=== PATIENT | male | born 1980 | race Caucasian/White ===

== ENCOUNTER 2016-11-09 10:53 | Emergency (ER) | payer SELFPAY ==
[2016-11-09 11:03] VITALS: RESP 18; TEMP 99.5
--- NOTE | 2016-11-09 11:07 | EDPHY ---
H & P Stated Complaint: medical clear for longterm, hx NE Time Seen by Provider: 11/09/16 11:00 HPI/ROS: CHIEF COMPLAINT: Sent to the ED for medical clearance HISTORY OF PRESENT ILLNESS: The patient presents to the emergency department for medical clearance. The patient reportedly was being booked into longterm and was noted to have a Holter monitor on his chest. The patient reports that he has a history of small heart attacks but denies history of having had an angiogram. The patient denies any active chest pain or shortness of breath. The patient states he typically receives his care at the [facility]. The patient reportedly went to an urgent care facility who placed the Holter monitor on the patient. The patient denies any additional complaints of fever, cough or congestion. REVIEW OF SYSTEMS: A comprehensive 10 point review of systems is otherwise negative aside from elements mentioned in the history of present illness. Source: Patient Exam Limitations: No limitations - Personal History Current Tetanus Diphtheria and Acellular Pertussis (TDAP): Yes Tetanus Vaccine Date: 2015 - Medical/Surgical History Hx Asthma: No Hx Chronic Respiratory Disease: No Hx Diabetes: No Hx Cardiac Disease: No Hx Renal Disease: No Hx Cirrhosis: No Hx Alcoholism: No Hx HIV/AIDS: No Hx Splenectomy or Spleen Trauma: No Other PMH: NE - Social History Smoking Status: Former smoker - Physical Exam Exam: General Appearance: Alert, no distress Eyes: Pupils equal and round no pallor or injection ENT, Mouth: Mucous membranes moist Respiratory: There are no retractions, lungs are clear to auscultation Cardiovascular: Regular rate and rhythm Gastrointestinal: Abdomen is soft and nontender, no masses, bowel sounds normal Neurological: A&O, normal motor function, normal sensory exam, normal cranial nerves Skin: Warm and dry, no rashes Musculoskeletal: Neck is supple nontender Extremities: symmetrical, full range of motion Constitutional: Initial Vital Signs Temperature (C) 37.5 C 11/09/16 11:02 Heart Rate 126 H 11/09/16 11:02 Respiratory Rate 18 11/09/16 11:02 Blood Pressure 166/120 H 11/09/16 11:02 O2 Sat (%) 96 11/09/16 11:02 O2 Delivery Mode Room Air Allergies/Adverse Reactions: codeine Allergy (Verified 11/09/16 11:00) Sulfa (Sulfonamide Antibiotics) Allergy (Verified 11/09/16 11:00) Medical Decision Making - Diagnostics EKG Interpretation: EKG: Complete interpretation has been separately recorded in the [email or web address] archive. Summary impression: Sinus tachycardia, rate 132 Imaging: Chest x-ray AP: Images reviewed by myself, negative for cardiomegaly, pneumothorax, pneumonia or other abnormality which would explain chest pain. ED Course/Re-evaluation: I reviewed our records at the hospital and see no prior history of documented coronary artery disease or hospitalization for chest pain. I contacted [facility] and reviewed his past medical history. The report the patient had no history of CAD per their records. They report a normal Holter monitor test for palpitations. His medications included Klonopin and trazadone. He does have a history of anxiety. At this point time the patient does have evidence of a sinus tachycardia which I feel is secondary to his history of anxiety as well as the fact that he is being arrested. The patient has no risk factors for pulmonary embolism. The patient denies pleuritic chest pain. He has no clinical evidence of a DVT. The patient has no risk factors for cardiac disease. The patient's D-dimer is normal which I feel adequately excludes pulmonary embolism. Additionally the patient's troponin is normal. His chest x-ray demonstrates no acute disease. Upon reviewing his records with the [facility] electronic health record system as well as [facility] there is no history of coronary artery disease. At this point time I do feel that he can be discharged to the longterm. Differential Diagnosis: Differential diagnosis considered includes acute coronary syndrome, pericarditis , myocarditis - Data Points Laboratory Results: Laboratory Results 11/09/16 11:06 11/09/16 11:06 11/09/16 11:06 WBC 11.37 H 10^3/uL (3.80-9.50) RBC 5.80 10^6/uL (4.40-6.38) Hgb 17.2 g/dL (13.7-17.5) Hct 49.1 % (40.0-51.0) MCV 84.7 fL (81.5-99.8) MCH 29.7 pg (27.9-34.1) MCHC 35.0 g/dL (32.4-36.7) RDW 13.1 % (11.5-15.2) Plt Count 338 10^3/uL (150-400) MPV 9.0 fL (8.7-11.7) Neut % (Auto) 77.5 H % (39.3-74.2) Lymph % (Auto) 12.1 L % (15.0-45.0) [place] % (Auto) 8.9 % (4.5-13.0) Eos % (Auto) 0.6 % (0.6-7.6) Baso % (Auto) 0.4 % (0.3-1.7) Nucleat RBC Rel Count 0.0 % (0.0-0.2) Absolute Neuts (auto) 8.80 H 10^3/uL (1.70-6.50) Absolute Lymphs (auto) 1.38 10^3/uL (1.00-3.00) Absolute Monos (auto) 1.01 H 10^3/uL (0.30-0.80) Absolute Eos (auto) 0.07 10^3/uL (0.03-0.40) Absolute Basos (auto) 0.05 10^3/uL (0.02-0.10) Absolute Nucleated RBC 0.00 10^3/uL (0-0.01) Immature Gran % 0.5 % (0.0-1.1) Immature Gran # 0.06 10^3/uL (0.00-0.10) D-Dimer < 0.27 ug/mLFEU (0.00-0.50) Sodium 144 mEq/L (134-144) Potassium 3.6 mEq/L (3.5-5.2) Chloride 100 mEq/L (97-110) Carbon Dioxide 24 mEq/l (22-31) Anion Gap 20 mEq/L (8-16) BUN 16 mg/dL (7-23) Creatinine 1.0 mg/dL (0.7-1.3) Estimated GFR > 60 Glucose 114 H mg/dL (70-100) Calcium 9.7 mg/dL (8.5-10.4) Troponin I < 0.012 ng/mL (0-0.034) Departure - Departure Disposition: Home, Routine, Self-Care Clinical Impression: Tachycardia, Anxiety Condition: Good Instructions: Tachycardia (ED) Additional Instructions: 1. There is no evidence of a heart attack, heart disease or significant heart issue based upon our evaluation in the ED today. 2. Please follow up with your primary care provider as scheduled
--- NOTE | 2016-11-09 11:12 | CPEKG ---
Heart Rate: 132 RR Interval: 455 P-R Interval: 160 QRSD Interval: 86 QT Interval: 292 QTC Interval: 433 P [place]: 76 QRS [place]: 79 T Wave [place]: 15 EKG Severity - OTHERWISE NORMAL ECG - EKG Impression: SINUS TACHYCARDIA EKG Impression: MINIMAL ST DEPRESSION, INFERIOR LEADS Electronically Signed By: Sagar Fernandez 09-Nov-2016 16:22:45
[2016-11-09 11:35] LABS: % IMMATURE GRANULYOCYTES 0.5 % (0.0-1.1); ABSOLUTE IMMATURE GRANULOCYTES 0.06 10^3/uL (0.00-0.10); ADD DIFF? NO; ADD MORPH? NO; ADD SCAN? NO; ATYPICAL LYMPHOCYTE FLAG 0 (0-99); FRAGMENT RBC FLAG 0 (0-99); HEMATOCRIT 49.1 % (40.0-51.0); HEMOGLOBIN 17.2 g/dL (13.7-17.5); LEFT SHIFT FLG 0 (0-99); LIPEMIA HEMOLYSIS FLAG 90 (0-99); MEAN CELL HEMOGLOBIN 29.7 pg (27.9-34.1); MEAN CELL VOLUME 84.7 fL (81.5-99.8); PLATELET CLUMPS FLAG 0 (0-99); PLATELET COUNT 338 10^3/uL (150-400); RED CELL DISTRIBUTION WIDTH 13.1 % (11.5-15.2)
[2016-11-09 11:45] LABS: ANION GAP 20 mEq/L (8-16); CALCIUM 9.7 mg/dL (8.5-10.4); CARBON DIOXIDE 24 mEq/l (22-31); CHLORIDE 100 mEq/L (97-110); GLOMERULAR FILTRATION RATE > 60; GLUCOSE 114 mg/dL (70-100); POTASSIUM 3.6 mEq/L (3.5-5.2); SODIUM 144 mEq/L (134-144)
[2016-11-09 11:57] LABS: TROPONIN I < 0.012 ng/mL (0-0.034)
[2016-11-09 12:01] VITALS: BP 145/100; PULSE 123; O2SAT 100
--- NOTE | 2016-11-09 12:20 | DX ---
Portable AP Upright Chest, Single View, at 11:41 a.m. Clinical Indications: 35-year-old male in the ED with chest pain. Comparison Study: None. Findings: Telemetry monitoring lead lines are present. A frontal view (only) shows clear lungs, and no masses. The cardiac silhouette size and pulmonary vessels appear normal. There is no evidence of a pleural effusion, peripheral interstitial edema, or pneumothorax. The osseous structures are age-a ppropriate. The trachea is midline. Impression: Negative frontal chest radiograph.
== END 2016-11-09 12:19 | disposition home or self-care (01) ==
DX: R00.0 Tachycardia, unspecified (principal); F41.9 Anxiety disorder, unspecified; I25.2 Old myocardial infarction; Z87.891 Personal history of nicotine dependence

== ENCOUNTER 2017-01-29 20:32 | Emergency (ER) | payer SELFPAY ==
[2017-01-29 20:46] VITALS: RESP 16; TEMP 98.2
--- NOTE | 2017-01-29 20:48 | UCPHY ---
H & P Patient Type: Established Chief Complaint Nursing Narrative: R rib pain after hitting R side on dumpster on 01/25. HPI/ROS: HPI CHIEF COMPLAINT: Right rib pain HISTORY OF PRESENT ILLNESS: This patient very pleasant 28-year-old male denies having any significant medical history, presents to the urgent care with right rib pain. Patient states 3 days ago he was throwing something on into a dumpster he was using all this force to get this object in the dumpster any fell onto his right ribs against a dumpster edge, did not fall on it just leaned up against it with impacted his right lateral ribs. He now has right lateral rib pain 1 focal area. Hurts to take a deep breath in however he is not short of breath. No coughing. No hemoptysis. Pain with going to sit up in pain with deep inspiration. This been present for 72 hours. Past Medical History:No significant medical history Past Surgical History: Denies any recent surgical history Social History: denies daily use drugs alcohol tobacco products Family History: Noncontributory ROS REVIEW OF SYSTEMS: A comprehensive 10 point review of systems is otherwise negative aside from elements mentioned in the history of present illness. Exam Constitutional triage nursing summary reviewed, vital signs reviewed, awake/ alert. Eyes normal conjunctivae and sclera, EOMI, PERRLA. HENT normal inspection, atraumatic, moist mucus membranes, no epistaxis, neck supple/ no meningismus, no raccoon eyes. Respiratory clear to auscultation bilaterally, normal breath sounds, no respiratory distress, no wheezing. Cardiovascular chest wall; tender palpation right lateral ribs 8 9th area, focally tender, good breath sounds bilaterally, no flail chest, no ecchymosis rate normal, regular rhythm, no murmur, no edema, distal pulses normal. Gastrointestinal soft, non-tender, no rebound, no guarding, normal bowel sounds, no distension, no pulsatile mass. Genitourinary no CVA tenderness. Musculoskeletal no midline vertebral tenderness, full range of motion, no calf swelling, no tenderness of extremities, no meningismus, good pulses, neurovascularly intact. Skin pink, warm, & dry, no rash, skin atraumatic. Neurologic awake, alert and oriented x 3, AAOx3, moves all 4 extremities equally, motor intact, sensory intact, CN II-XII intact, normal cerebellar, normal vision, normal speech. Psychiatric normal mood/affect. Heme/Lymph/Immune no lymphadenopathy. Differential Diagnosis: Includes but is not limited to in a particular, rib fractures, rib contusion, rib sprain, musculoskeletal injury, pneumothorax, hemothorax Medical Decision Making: Plan for this patient ibuprofen dose here 800 mg, two view chest x-ray and rib series right-sided to evaluate for rib fractures pneumothorax. Most likely this patient is rib contusion. Re-evaluation: ED x-ray right rib chest two view:No acute fracture seen on x-ray, no pneumothorax. 2134: x-ray reviewed by myself, do not appreciate a pneumothorax or significant rib fractures. Will place on ibuprofen ice pack. Take it easy. Understands if develops worsening chest pain, shortness of breath or questions or concerns return to the urgent care emergency room. Source: Patient - Personal History Current Tetanus Diphtheria and Acellular Pertussis (TDAP): Yes Tetanus Vaccine Date: 2015 - Medical/Surgical History Hx Asthma: No Hx Chronic Respiratory Disease: No Hx Diabetes: No Hx Cardiac Disease: No Hx Renal Disease: No Hx Cirrhosis: No Hx Alcoholism: No Hx HIV/AIDS: No Hx Splenectomy or Spleen Trauma: No Other PMH: Possible [place] 2015 - Family History Significant Family History: No pertinent family hx - Social History Smoking Status: Former smoker Constitutional: Initial Vital Signs Temperature (C) 36.8 C 01/29/17 20:43 Heart Rate 108 H 01/29/17 20:43 Respiratory Rate 16 01/29/17 20:43 Blood Pressure 148/96 H 01/29/17 20:43 O2 Sat (%) 93 01/29/17 20:43 O2 Delivery Mode Room Air Allergies/Adverse Reactions: codeine Allergy (Unknown, Verified 01/29/17 20:46) Unknown Sulfa (Sulfonamide Antibiotics) Allergy (Unknown, Verified 01/29/17 20:47) Unknown Home Medications: Medication Instructions Recorded Ibuprofen [Motrin (*)] 800 mg PO Q6-8PRN #10 tab 01/29/17 Medical Decision Making - Data Points Medications Given: Discontinued Medications Ibuprofen (Motrin) 800 mg PO EDNOW ONE Stop: 01/29/17 20:57 Last Admin: 01/29/17 21:01 Dose: 800 mg Departure - Departure Disposition: Home, Routine, Self-Care Clinical Impression: Contusion of rib on right side Qualifiers: Encounter type: initial encounter Qualified Code(s): S20.211A - Contusion of right front wall of thorax, initial encounter Condition: Good Instructions: Rib Contusion (ED) Additional Instructions: 1. Ice her ribs. 2. take anti-inflammatory pain medicine as prescribed for acute pain control. 3. Take it easy. 4.To return to the emergency room urgent care if he develops severe pain, shortness of breath. Referrals: NONE *PRIMARY CARE P,. [Primary Care Provider] - As per Instructions Prescriptions: Ibuprofen [Motrin (*)] 800 mg PO Q6-8PRN #10 tab - PQRS PQRS Measurement: n/a
[2017-01-29] MEDS ORDERED: IBUPROFEN 800 MG TAB PO ONE (20:56)
[2017-01-29] MEDS ORDERED: IBUPROFEN 200 MG TAB PO ONE (20:58)
[2017-01-29 21:44] VITALS: BP 144/89; PULSE 104; O2SAT 96
== END 2017-01-29 21:45 | disposition home or self-care (01) ==
LOC: CED 20:32
DX: S20.211A Contusion of right front wall of thorax, initial encounter (principal); W22.8XXA Striking against or struck by other objects, initial encounter; W19.XXXA Unspecified fall, initial encounter; Z87.891 Personal history of nicotine dependence
CPT/HCPCS: 71101-PO; 99214-PO; G0463-PO

== ENCOUNTER 2017-02-16 09:12 | Emergency (ER) | payer SELFPAY ==
[2017-02-16] MEDS ORDERED: ASPIRIN 81 MG CHEWABLE TAB PO ONE (09:20)
--- NOTE | 2017-02-16 09:29 | CPEKG ---
Heart Rate: 107 RR Interval: 561 P-R Interval: 136 QRSD Interval: 86 QT Interval: 324 QTC Interval: 433 P [place]: 72 QRS [place]: 54 T Wave [place]: -6 EKG Severity - OTHERWISE NORMAL ECG - EKG Impression: SINUS TACHYCARDIA Electronically Signed By: Jude Alberto 16-Feb-2017 15:54:24
[2017-02-16] MEDS ORDERED: NS 1,000 ML IV ONE (09:31)
[2017-02-16 09:44] LABS: % IMMATURE GRANULYOCYTES 0.7 % (0.0-1.1); ABSOLUTE IMMATURE GRANULOCYTES 0.05 10^3/uL (0.00-0.10); ADD DIFF? NO; ADD MORPH? NO; ADD SCAN? NO; ATYPICAL LYMPHOCYTE FLAG 10 (0-99); FRAGMENT RBC FLAG 0 (0-99); HEMATOCRIT 45.8 % (40.0-51.0); HEMOGLOBIN 15.9 g/dL (13.7-17.5); LEFT SHIFT FLG 0 (0-99); LIPEMIA HEMOLYSIS FLAG 90 (0-99); MEAN CELL HEMOGLOBIN 29.6 pg (27.9-34.1); MEAN CELL HEMOGLOBIN CONCENTR. 34.7 g/dL (32.4-36.7); MEAN CELL VOLUME 85.3 fL (81.5-99.8); MEAN PLATELET VOLUME 8.7 fL (8.7-11.7); PLATELET CLUMPS FLAG 0 (0-99); PLATELET COUNT 306 10^3/uL (150-400); RED BLOOD CELL COUNT 5.37 10^6/uL (4.40-6.38)
[2017-02-16 09:57] LABS: ANION GAP 16 mEq/L (8-16); CARBON DIOXIDE 25 mEq/l (22-31); CHLORIDE 99 mEq/L (97-110); GLOMERULAR FILTRATION RATE > 60; GLUCOSE 93 mg/dL (70-100); POTASSIUM 3.7 mEq/L (3.5-5.2); SODIUM 140 mEq/L (134-144)
[2017-02-16 10:10] LABS: TROPONIN I < 0.012 ng/mL (0-0.034)
[2017-02-16 10:35] VITALS: TEMP 97.9
--- NOTE | 2017-02-16 11:10 | UCPHY ---
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 [place] that with through to his back to the left scapular region. Currently the pain is 4/10 without intervention. He has had similar pains in the past with negative workups but feels the intensity of this morning's episode was more severe than usual. He reported mild dyspnea associated with this and felt that the discomfort worsened slightly with a deep breath. He has associated anxiety and reports increased work stress recently. He notes no other exacerbating factors. ROS: No fevers chills or other constitutional symptoms recently except for the increased work stress. HEENT: No URI symptoms or other complaints recently. Pulmonary: No coughing. No hemoptysis. No respiratory distress. Cardiovascular: No heart palpitations. No lightheadedness. No lower extremity swelling or calf pain. GI: No belly pain nausea or vomiting. Endocrine: No diaphoresis: Integumentary: No skin rash. 10 point ROS is otherwise negative. Source: Patient Exam Limitations: No limitations - Personal History Current Tetanus Diphtheria and Acellular Pertussis (TDAP): Yes Tetanus Vaccine Date: 2015 - Medical/Surgical History PMH: Prior chest pains and anxiety with negative workups. 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 Eyes: Pupils equal and round no pallor or injection. ENT, Mouth: Mucous membranes moist. Respiratory: There are no retractions, lungs are clear to auscultation. No chest wall tenderness. Cardiovascular: Regular rate and rhythm. No murmur gallop rub. No JVD. No peripheral edema. No calf swelling or tenderness. Gastrointestinal: Abdomen is soft and nontender, no masses, bowel sounds normal. Neurological: GCS of 15 with no focal sensory motor deficits. Skin: Warm and dry, no rashes. Musculoskeletal: Neck is supple nontender. Extremities are symmetrical, full range of motion. Psychiatric: Mood and affect are normal DIFFERENTIAL DIAGNOSIS: After history and physical exam differential diagnosis was considered for musculoskeletal pain, pleurisy, PE, coronary syndrome, pneumothorax, pneumonia Constitutional: Initial Vital Signs Temperature (C) 36.3 C 02/16/17 09:12 Heart Rate 103 H 02/16/17 09:12 Respiratory Rate 18 02/16/17 09:12 Blood Pressure 143/88 H 02/16/17 09:12 O2 Sat (%) 99 02/16/17 09:12 O2 Delivery Mode Room Air Allergies/Adverse Reactions: codeine Allergy (Unknown, Verified 02/16/17 09:20) Unknown Sulfa (Sulfonamide Antibiotics) Allergy (Unknown, Verified 02/16/17 09:20) Unknown Home Medications: Medication Instructions Recorded NK [No Known Home Meds] 02/16/17 Medical Decision Making - Diagnostics EKG Interpretation: 12 lead EKG performed at 9:20 a.m. atrial after arrival indication chest pain reveals sinus tachycardia 107 Overall assessment sinus tachycardia otherwise normal For complete read please refer to trace master. Imaging Results: Imaging Impressions Chest X-Ray 02/16/17 10:07 Impression: Normal. Chest x-ray: Normal by my interpretation ED Course/Re-evaluation: IV normal saline bolus, patient placed on monitor and remained stable throughout his course. He is treated with aspirin shortly after arrival and his symptoms resolved without further intervention. Studies: CBC, basic metabolic panel, D-dimer and troponin are all normal. Discussion: Patient had a significant anxiety component to his symptoms and I think this is strongly associated with today's presentation. Find no evidence of coronary syndrome, PE, pneumonia, pneumothorax or other acute cardiopulmonary pathology. Counseled regarding this. He will follow up with primary care physician good the emergency department for any significant recurrent symptoms. - Data Points Laboratory Results: Laboratory Results 02/16/17 09:38 02/16/17 09:38 02/16/17 02/16/17 02/16/17 09:38 09:38 09:38 WBC 7.33 10^3/uL 10^3/uL (3.80-9.50) RBC 5.37 10^6/uL 10^6/uL (4.40-6.38) Hgb 15.9 g/dL g/dL (13.7-17.5) Hct 45.8 % % (40.0-51.0) MCV 85.3 fL fL (81.5-99.8) MCH 29.6 pg pg (27.9-34.1) MCHC 34.7 g/dL g/dL (32.4-36.7) RDW 13.0 % % (11.5-15.2) Plt Count 306 10^3/uL 10^3/uL (150-400) MPV 8.7 fL fL (8.7-11.7) Neut % (Auto) 70.1 % % (39.3-74.2) Lymph % (Auto) 17.9 % % (15.0-45.0) [place] % (Auto) 7.9 % % (4.5-13.0) Eos % (Auto) 2.6 % % (0.6-7.6) Baso % (Auto) 0.8 % % (0.3-1.7) Nucleat RBC Rel Count 0.0 % % (0.0-0.2) Absolute Neuts (auto) 5.14 10^3/uL 10^3/uL (1.70-6.50) Absolute Lymphs (auto) 1.31 10^3/uL 10^3/uL (1.00-3.00) Absolute Monos (auto) 0.58 10^3/uL 10^3/uL (0.30-0.80) Absolute Eos (auto) 0.19 10^3/uL 10^3/uL (0.03-0.40) Absolute Basos (auto) 0.06 10^3/uL 10^3/uL (0.02-0.10) Absolute Nucleated RBC 0.00 10^3/uL 10^3/uL (0-0.01) Immature Gran % 0.7 % % (0.0-1.1) Immature Gran # 0.05 10^3/uL 10^3/uL (0.00-0.10) D-Dimer < 0.27 ug/mLFEU ug/mLFEU (0.00-0.50) Sodium 140 mEq/L mEq/L (134-144) Potassium 3.7 mEq/L mEq/L (3.5-5.2) Chloride 99 mEq/L mEq/L (97-110) Carbon Dioxide 25 mEq/l mEq/l (22-31) Anion Gap 16 mEq/L mEq/L (8-16) BUN 11 mg/dL mg/dL (7-23) Creatinine 1.0 mg/dL mg/dL (0.7-1.3) Estimated GFR > 60 Glucose 93 mg/dL mg/dL (70-100) Calcium 9.0 mg/dL mg/dL (8.5-10.4) Troponin I < 0.012 ng/mL ng/mL (0-0.034) Medications Given: Discontinued Medications Aspirin (Aspirin) 324 mg PO EDNOW ONE Stop: 02/16/17 09:21 Last Admin: 02/16/17 09:31 Dose: 324 mg Sodium Chloride (Ns) 1,000 mls @ 0 mls/hr IV ONCE ONE PRN Reason: Wide Open Stop: 02/16/17 09:32 Last Admin: 02/16/17 09:40 Dose: 1,000 mls Departure - Departure Disposition: Home, Routine, Self-Care Clinical Impression: Anxiety Chest pain Qualifiers: Chest pain type: unspecified Qualified Code(s): R07.9 - Chest pain, unspecified Condition: Good Instructions: Chest Pain (ED), Anxiety (ED) Additional Instructions: Diagnosis: Chest pain 2. anxiety Plan: Daily exercise for 20-40 minutes 5 days a week to reduce stress Daily relaxation for 20 minutes or more such as a hot bath Follow up with primary care physician for any ongoing symptoms Relaxation process as described if needed for anxiety Go to the emergency department for any significant worsening despite the treatment plan Referrals: NONE *PRIMARY CARE P,. [Primary Care Provider] - As per Instructions Enedina Martin MD [Medical Doctor] - As per Instructions Stand Alone Forms: Work Excuse - PQRS PQRS Measurement: NA
[2017-02-16 11:13] VITALS: BP 147/94; PULSE 104; RESP 20; O2SAT 96
== END 2017-02-16 11:30 | disposition home or self-care (01) ==
LOC: CED 09:12
DX: F41.9 Anxiety disorder, unspecified (principal); R07.9 Chest pain, unspecified
CPT/HCPCS: 71020-PO; 80048-PO; 84484-PO; 85025-PO; 85378-PO; 93010-PO; 96360-PO; 99215-PO; G0463-PO